=== PATIENT | male | born 1985 ===

== ENCOUNTER 2017-01-01 16:53 | Emergency (ER) | payer OTHER ==
[2017-01-01 17:03] VITALS: BP 102/73; PULSE 83; RESP 16; TEMP 98; O2SAT 100
--- NOTE | 2017-01-01 17:43 | ED PDOC ---
Lower Extremity Pain/Injury Chief Complaint (Provider): Right Ankle Pain History Per: Patient History/Exam Limitations: no limitations Onset/Duration Of Symptoms: Hrs Current Symptoms Are (Timing): Still Present Additional History Per: Patient Additional Complaint(s): Drew Wise is a 31 year old male that presents to the ED with a chief complaint of right ankle pain and swelling that is a direct result of an injury that occurred while he was at work. 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 He denies any knee pain, as well as denies hitting his back or head. <Stefania Lopes - Last Filed: 01/01/17 20:37> <Lori Travis - Last Filed: 01/02/17 11:17> Time Seen by Provider: 01/01/17 16:59 Chief Complaint (Nursing): Lower Extremity Problem/Injury Past Medical History Reviewed: Historical Data, Nursing Documentation, Vital Signs Vital Signs: Last Vital Signs Temp 98.0 F 01/01/17 16:59 Pulse 83 01/01/17 16:59 Resp 16 01/01/17 16:59 BP 102/73 01/01/17 16:59 Pulse Ox 100 01/01/17 16:59 - Family History Family History: States: Unknown Family Hx <Stefania Lopes - Last Filed: 01/01/17 20:37> Vital Signs: Last Vital Signs Temp 98.0 F 01/01/17 16:59 Pulse 83 01/01/17 16:59 Resp 16 01/01/17 16:59 BP 102/73 01/01/17 16:59 Pulse Ox 100 01/01/17 20:40 <Lori Travis - Last Filed: 01/02/17 11:17> - Home Medications Home Medications: Ambulatory Orders Medication Instructions Recorded Ibuprofen [Motrin Tab] 800 mg PO Q6H PRN #20 tab 01/01/17 - Allergies Allergies/Adverse Reactions: Allergies Allergy/AdvReac Type Severity Reaction Status Date / Time No Known Allergies Allergy Verified 01/01/17 16:59 Review of Systems Musculoskeletal: Positive for: Leg Pain (right ankle pain and swelling, denies knee pain). Negative for: Back Pain <Stefania Lopes - Last Filed: 01/01/17 20:37> Physical Exam - Reviewed Nursing Documentation Reviewed: Yes Vital Signs Reviewed: Yes - Physical Exam Appears: Positive for: Non-toxic, No Acute Distress Head Exam: Positive for: ATRAUMATIC, NORMOCEPHALIC Skin: Positive for: Normal Color, Warm Eye Exam: Positive for: Normal appearance, EOMI, PERRL Cardiovascular/Chest: Positive for: Regular Rate, Rhythm. Negative for: Murmur Respiratory: Positive for: Normal Breath Sounds. Negative for: Wheezing Extremity: Positive for: Swelling (localized to the right ankle), Other ( bilateral malleolus pain, no ecchymosis) Neurologic/Psych: Positive for: Alert, Oriented, Other (sensation intact). Negative for: Motor/Sensory Deficits <Stefania Lopes Filed: 01/01/17 20:37> - ECG O2 Sat by Pulse Oximetry: 100 (RA) Pulse Ox Interpretation: Normal <Stefania Lopes Filed: 01/01/17 20:37> Medical Decision Making Medical Decision Making: Impression: Right Ankle Injury Plan: * Ibuprofen 600 mg PO * X-Ray Right Ankle * X-Ray Right Foot * Reevaluation * Foot and ankle x-ray without fracture or dislocation, (+) soft tissue swelling. Scribe Attestation: Documented by Carla Aquino, acting as a scribe for Stefania Lopes PA-C. Provider Scribe Attestation: All medical record entries made by the Scribe were at my direction and personally dictated by me. I have reviewed the chart and agree that the record accurately reflects my personal performance of the history, physical exam, medical decision making, and the department course for this patient. I have also personally directed, reviewed, and agree with the discharge instructions and disposition. <Stefania Lopes - Last Filed: 01/01/17 20:37> Medical Decision Making: I received called from Dr. Brown regarding possible fracture. Chart reviewed and patient was seen in ED by podiatry and was splinted. <Lori Travis - Last Filed: 01/02/17 11:17> Disposition - Patient ED Disposition Is Patient to be Admitted: No Counseled Patient/Family Regarding: Diagnosis, Need For Followup, Rx Given - Disposition Disposition: Routine/Home Disposition Time: 20:38 <Stefania Lopes - Last Filed: 01/01/17 20:37> <Lori Travis - Last Filed: 01/02/17 11:17> - Clinical Impression Clinical Impression: Ankle injury - Disposition Referrals: Abigail Martinez DPM [Staff Provider] - Condition: GOOD Additional Instructions: Ice, elevation, motrin for pain. Follow-up with podiatry. Prescriptions: Ibuprofen [Motrin Tab] 800 mg PO Q6H PRN #20 tab PRN Reason: Pain Instructions: Ankle Sprain (ED) Print Language: SINHALA
--- NOTE | 2017-01-01 20:38 | CP.PCM.CON ---
History of Present Illness - History of Present Illness History of Present Illness: PODIATRY CONSULT NOTE 31 year old male presents to the ED with a chief complaint of right ankle pain and swelling that is a direct result of an injury that occurred while he was at work earlier today approximately at 4pm. 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 Surface he landed on was dirt and gravel. Pt reports he could immediately not bear weight to the right foot. He denies any knee pain, and denies hitting his back or head. Pt was brought promptly to [facility] by EMS. Pain, which is localized to level of right ankle, is under control with analgesics fgiven prior to the interview and examination. Pt deneis recent f/c/cp/sob/n/v. Meds Home Medications: Home Medication List Medication Instructions Recorded Confirmed Type Ibuprofen [Motrin Tab] 800 mg PO Q6H PRN #20 tab 01/01/17 Rx Allergies/Adverse Reactions: Allergies Allergy/AdvReac Type Severity Reaction Status Date / Time No Known Allergies Allergy Verified 01/01/17 16:59 Physical Exam - Constitutional Appears: Well, Non-toxic, No Acute Distress - Extremities Exam Additional comments: Right leg focused. VASC: DP and PT pulses non palpable, auscultated via doppler strongly biphasic. Negative calf tenderness on compression. Moderate non-pitting edema noted at level of ankle joint. Temperature runs warm to cool proximal to distal. DERM: No noted ecchymosis at this time. No open wounds, lesion, or macerations noted. No hyper-keratotic lesion. NEURO: Protective sensation and epicritic sensation grossly intact. Absent paresthesia or Tinel's signs along pedal dermatomes. MUSK: Tender limited ankle ROM of ankle joint in saggital plane, limitation moderate secondary to guarding and swelling. Tenderness on palpation along medial malleoli, lateral malleoli, and anterior ankle joint. Negative tgenderness along proximal fibula, no pain on proximal induced ankle joint diastasis attempts. Pedal muscle strength is graded 5/5 in all 4 major pedal muscle groups. No gross deformities noted. - Neurological Exam Neurological exam: Alert, Oriented x3 - Psychiatric Exam Psychiatric exam: Normal Affect, Normal Mood Results - Vital Signs Recent Vital Signs: Last Vital Signs Temp 98.0 F 01/01/17 16:59 Pulse 83 01/01/17 16:59 Resp 16 01/01/17 16:59 BP 102/73 01/01/17 16:59 Pulse Ox 100 01/01/17 17:47 Assessment & Plan - Assessment and Plan (Free Text) Assessment: 31 year old male w/ with right ankle sprain injury Plan: Pt evaluated and treated. Chart, labs, and vitals reviewed. Discussed with attending Dr. Martinez, who endorsed the following plan. -X-rays reviewed, results show:mild soft tissue swelling, no overt fractures not gross displacements noted. -Gaxiola Compression applied. Placed pt in posterior splint. To be non- weightbearing to right leg with use of axillary crutches. -Pain control via Ibuprofen 800mg prn pain. Pt to followup with Dr. Martinez in office within 1 week. - Date & Time Date: 01/01/17 Time: 19:30
--- NOTE | 2017-01-02 10:39 | RAD ---
PROCEDURE: Right ankle dated 01/01/2017 HISTORY: pain, swelling, fall COMPARISON: Correlation made with concurrent radiographs right foot FINDINGS: BONES: No definitive radiographic evidence of acute displaced fracture nor dislocation. The osseous structures appear intact. Talar dome intact. JOINTS: No significant osteoarthritis. . Ankle mortise maintained. . SOFT TISSUES: Mild soft tissue swelling overlying the lateral malleolus. There does appear to be small joint effusion. OTHER FINDINGS: None. IMPRESSION: No definite evidence of acute displaced fracture nor dislocation. The there is mild soft tissue swelling overlying the lateral malleolus. If symptoms persist or occult fracture suspected clinically recommend repeat radiographs in 7-10 days as most fractures should become radiographically evident in this timeframe.
--- NOTE | 2017-01-02 10:48 | RAD ---
PROCEDURE: Right foot 01/01/2017 Limited two-view right foot performed. HISTORY: mid foot pain s/p fall COMPARISON: Correlation made with concurrent radiographs of the right ankle. FINDINGS: BONES: Previously noted questionable - suspicious of fracture lateral aspect talar dome is not appreciated on this study. Please refer to dedicated ankle radiographs for additional details. . The remaining visualized bones of the foot appear intact. JOINTS: Small ankle joint effusion. SOFT TISSUES: Mild soft tissue swelling overlying the lateral malleolus. OTHER FINDINGS: None. IMPRESSION: Previously noted questionable - suspicious of fracture lateral aspect talar dome is not appreciated on this study. Please refer to dedicated ankle radiographs for additional details. . The remaining visualized bones of the foot appear intact. Note that this report was placed in PA review folder followup
== END 2017-01-01 21:09 | disposition home or self-care (01) ==
LOC: H.ER 16:53
DX: S93.401A Sprain of unspecified ligament of right ankle, initial encounter (principal); W19.XXXA Unspecified fall, initial encounter; Y99.0 Civilian activity done for income or pay